=== PATIENT | female | born 1940 | race Caucasian/White ===

== ENCOUNTER → 2016-11-05 | Outpatient (CLI) | payer MEDICARE, OTHER ==
[~2016-11-05] MED LIST: ESTR0.5T15 PO; FAMO-14 PO; LEVO50TA72 PO; SIMV20TA89 PO
== END ==
LOC: WC.BC 13:45
DX: Z12.31 Encounter for screening mammogram for malignant neoplasm of breast (principal)
CPT/HCPCS: 77063; G0202